=== PATIENT | male | born 1950 | race Caucasian/White ===

== ENCOUNTER 2016-12-31 14:34 | Emergency (ER) | payer MEDICARE ==
[~2016-12-31] VITALS: Ht 182.9 cm; Wt 75.0 kg
[2016-12-31 14:39] VITALS: BP 115/56; PULSE 59; RESP 15; TEMP 97.6; O2SAT 100
[2016-12-31] MEDS ORDERED: SODIUM CHLOR 0.9% 1000 ML INJ 1,000 ML IV ONE (14:44)
[2016-12-31] MEDS ORDERED: SODIUM CHLORIDE 0.9% FLUSH 5 ML FLUSH IVF PRN (14:45)
[2016-12-31 14:46] VITALS: O2SAT 100
[2016-12-31] MEDS ORDERED: LEVO-86 PO (14:47)
[2016-12-31] MEDS ORDERED: CARD180C5 PO (14:47)
--- NOTE | 2016-12-31 14:56 | PD ---
HPI Chief Complaint: Syncope/Near-Syncope Time Seen by Provider: 14:40 Travel History International Travel<30 days: No Contact w/Intl Traveler<30days: No Traveled to known affect area: No History of Present Illness HPI 66-year-old male with history of proximal atrial fibrillation on Cardizem and aspirin presents for evaluation via EMS for syncopal episode. He reports that today he was sitting a [place] in town with friends smoking marijuana. He reports that he stood up and immediately felt lightheaded and he then passed out briefly on the ground. This was witnessed by his friends. There is no reported seizure activity. He reports that he feels significantly improved after the administration of Zofran via EMS. Denies any episodes of chest pain, shortness of breath, headache, blurred vision, nausea or vomiting, vertigo sensation. He denies any injuries from the fall. He reports that he had one syncopal episode about a year ago under similar circumstances in which he was smoking marijuana. He has no other complaints. PFSH Past Medical History Atrial Fibrillation: Yes Diminished Hearing: No Thyroid Disease: Yes Past Surgical History Cholecystectomy: Yes Social History Alcohol Use: Yes (OCC) Tobacco Use: No Substance Use: Yes (MARIJUANA ) Allergies-Medications (Allergen,Severity, Reaction): Coded Allergies: No Known Allergies (Unverified , 12/31/16) Reported Meds & Prescriptions Reported Meds & Active Scripts Active Reported Synthroid (Levothyroxine Sodium) 137 Mcg Tab 137 Mcg PO DAILY Cardizem CD 24 HR (Diltiazem CD 24 HR) 180 Mg Caper 180 Mg PO DAILY Review of Systems Except as stated in HPI: all other systems reviewed are Neg Physical Exam Narrative GENERAL: Well-developed well-nourished male in no acute distress answering questions appropriately SKIN: Warm and dry. HEAD: Atraumatic. Normocephalic. EYES: Pupils equal and round. No scleral icterus. No injection or drainage. ENT: No nasal bleeding or discharge. Mucous membranes pink and moist. NECK: Trachea midline. No JVD. CARDIOVASCULAR: Regular rate and rhythm. No murmur appreciated. RESPIRATORY: No accessory muscle use. Clear to auscultation. Breath sounds equal bilaterally. GASTROINTESTINAL: Abdomen soft, non-tender, nondistended. Hepatic and splenic margins not palpable. MUSCULOSKELETAL: No obvious deformities. No edema NEUROLOGICAL: Awake and alert. No obvious cranial nerve deficits. Motor grossly within normal limits. Normal speech. PSYCHIATRIC: Appropriate mood and affect; insight and judgment normal. Data Data Last Documented VS Vital Signs Date Time Temp Pulse Resp B/P Pulse Ox O2 Delivery O2 Flow Rate FiO2 12/31/16 14:46 100 Room Air 12/31/16 14:43 57 14 12/31/16 14:39 97.6 115/56 Orders Electrocardiogram (12/31/16 14:44) Basic Metabolic Panel (Bmp) (12/31/16 14:44) Complete Blood Count With Diff (12/31/16 14:44) Magnesium (Mg) (12/31/16 14:44) Ckmb (Isoenzyme) Profile (12/31/16 14:44) Troponin I (12/31/16 14:44) Ecg Monitoring (12/31/16 14:44) Iv Access Insert/Monitor (12/31/16 14:44) Oximetry (12/31/16 14:44) Sodium Chloride 0.9% Flush (Ns Flush) (12/31/16 14:45) Sodium Chlor 0.9% 1000 Ml Inj (Ns 1000 M (12/31/16 14:44) Drug Screen, Random Urine (12/31/16 14:44) Orthostatic Vital Signs (12/31/16 14:56) Chest, Single Ap (12/31/16 ) CKMB (12/31/16 14:45) CKMB% (12/31/16 14:45) Labs Laboratory Tests Test 12/31/16 14:45 White Blood Count 5.2 TH/MM3 Red Blood Count 4.06 MIL/MM3 Hemoglobin 12.7 GM/DL Hematocrit 36.1 % Mean Corpuscular Volume 89.0 FL Mean Corpuscular Hemoglobin 31.3 PG Mean Corpuscular Hemoglobin 35.2 % Concent Red Cell Distribution Width 14.0 % Platelet Count 181 TH/MM3 Mean Platelet Volume 9.7 FL Neutrophils (%) (Auto) 61.9 % Lymphocytes (%) (Auto) 26.4 % Monocytes (%) (Auto) 8.3 % Eosinophils (%) (Auto) 3.0 % Basophils (%) (Auto) 0.4 % Neutrophils # (Auto) 3.3 TH/MM3 Lymphocytes # (Auto) 1.4 TH/MM3 Monocytes # (Auto) 0.4 TH/MM3 Eosinophils # (Auto) 0.2 TH/MM3 Basophils # (Auto) 0.0 TH/MM3 CBC Comment DIFF FINAL Differential Comment Sodium Level 143 MEQ/L Potassium Level 3.7 MEQ/L Chloride Level 107 MEQ/L Carbon Dioxide Level 28.5 MEQ/L Anion Gap 8 MEQ/L Blood Urea Nitrogen 18 MG/DL Creatinine 1.08 MG/DL Estimat Glomerular Filtration 68 ML/MIN Rate Random Glucose 104 MG/DL Calcium Level 8.8 MG/DL Magnesium Level 2.1 MG/DL Total Creatine Kinase 111 U/L Creatine Kinase MB 2.5 NG/ML Troponin I LESS THAN 0.02 NG/ML MDM Medical Decision Making Medical Screen Exam Complete: Yes Emergency Medical Condition: Yes Medical Record Reviewed: Yes Interpretation(s) ekg nsr CBC hemoglobin 12.7 otherwise unremarkable CBC unremarkable, cardiac enzymes normal Differential Diagnosis Orthostatic hypotension, vasovagal syncope, adverse reaction to marijuana, arrhythmia, electrolyte abnormality, PE, ACS Narrative Course 66-year-old male who was smoking marijuana while sitting when he stood up and began feeling dizzy and he had an episode of syncope. Similar episode of syncope one year ago under similar circumstances. He now feels improved after the administration of Zofran. He's had no episodes of chest pain, shortness of breath, no focal neurologic complaints or headache. IV established, the patient is being given IV fluids, basic lab work and EKG have been ordered. We will do orthostatic vital signs. Discussed with my attending agrees with plan of care. Upon reexamination the patient feels significantly improved. I checked his orthostatic vital signs and while supine he was 115/59 with a heart rate of 57, 117/65 with a heart rate of 59 when sitting and 119/62 with a heart rate of 62 when standing. Standing and walking did not reproduce any lightheadedness or dizziness. Likely his symptoms were secondary to orthostatic changes exacerbated by the fact that he is on diltiazem. I did offer to admit the patient for observation and serial cardiac enzymes and rule out purposes however he is declining and would prefer to follow up with his primary care physician. He is stable for discharge. Procedures EKG Prior to Arrival: Yes Diagnosis Primary Impression: Syncope Qualified Code: R55 - Syncope, unspecified syncope type Additional Instructions: Stay well-hydrated and well-nourished. Follow-up closely with primary care physician and return for any new or worsening symptoms. Med/Other Pt SpecificInfo: No Change to Meds Disposition: 01 DISCHARGE HOME Condition: Stable Nando Phillip Dec 31, 2016 14:56
[2016-12-31 15:06] LABS: AUTOMATED NEUTROPHIL # 3.3 TH/MM3 (1.8-7.7); BASOPHIL % 0.4 % (0.0-2.0); EOSINOPHIL # 0.2 TH/MM3 (0-0.4); HEMATOCRIT 36.1 % (39.0-51.0); HEMO FLAGS DIFF FINAL; LYMPH % 26.4 % (9.0-44.0); LYMPHOCYTE # 1.4 TH/MM3 (1.0-4.8); MEAN CORPUSCULAR HEMOGLOBIN 31.3 PG (27.0-34.0); MEAN CORPUSCULAR HGB CONC 35.2 % (32.0-36.0); MONO % 8.3 % (0.0-8.0); NEUT % 61.9 % (16.0-70.0); PLATELET COUNT 181 TH/MM3 (150-450); RED BLOOD COUNT 4.06 MIL/MM3 (4.50-5.90); WHITE BLOOD COUNT 5.2 TH/MM3 (4.0-11.0)
[2016-12-31 15:29] LABS: ANION GAP 8 MEQ/L (5-15); BICARBONATE 28.5 MEQ/L (21.0-32.0); BLOOD UREA NITROGEN 18 MG/DL (7-18); CHLORIDE 107 MEQ/L (98-107); GLOMERULAR FILTRATION RATE 68 ML/MIN (>89); MAGNESIUM 2.1 MG/DL (1.5-2.5); POTASSIUM 3.7 MEQ/L (3.5-5.1); SODIUM (NA) 143 MEQ/L (136-145)
[2016-12-31 15:33] LABS: CREATINE KINASE 111 U/L (39-308)
[2016-12-31 15:45] LABS: CKMB 2.5 NG/ML (0.5-3.6)
--- NOTE | 2016-12-31 16:08 | RADRPT ---
EXAM DATE/TIME: 12/31/2016 15:49 [facility] COMPARISON: No previous studies available for comparison. INDICATIONS : Short of breath. MEDICAL HISTORY : Syncope SURGICAL HISTORY : None. ENCOUNTER: Initial ACUITY: 1 day PAIN SCORE: 10/26 LOCATION: Bilateral chest FINDINGS: A single view of the chest demonstrates the lungs to be symmetrically aerated without evidence of mas s, infiltrate or effusion. The cardiomediastinal contours are unremarkable. Osseous structures are intact. CONCLUSION: No acute disease. Ramirez Carrillo MD FACR on December 31, 2016 at 15:54 Board Certified Radiologist. This report was verified electronically.
--- NOTE | 2016-12-31 17:59 | EKG ---
Date Performed: 12/31/2016 Time Performed: 13:58:59 PTAGE: 66 years EKG: SINUS BRADYCARDIA INCOMPLETE RIGHT BUNDLE BRANCH BLOCK BORDERLINE ECG NO PREVIOUS TRACING DOCTOR: Abner Hutchinson Interpretating Date/Time 12/31/2016 17:57:34
== END 2016-12-31 16:59 | disposition home or self-care (01) ==
LOC: NEPA 14:34
DX: R55 Syncope and collapse (principal); I48.0 Paroxysmal atrial fibrillation; E07.9 Disorder of thyroid, unspecified
CPT/HCPCS: 71010; 80048; 82550; 82552; 83735; 84484; 85025; 93005; 96360; 99284; J7030